=== PATIENT | female | born 1950 | race American Indian/Alaskan Native ===

== ENCOUNTER 2019-01-01 15:48 | Emergency (ER) | payer MEDICARE ==
[2019-01-01 17:54] LABS: Basophils % (Auto) 0.7 % (0.0-1.8); Eosinophils # (Auto) 0.2 K/mm3 (0.0-0.4); Eosinophils % (Auto) 3.4 % (0.0-4.3); Hematocrit 37.3 % (30.3-42.9); Hemoglobin 12.3 gm/dl (10.1-14.3); Lymphocytes # (Auto) 2.1 K/mm3 (1.2-5.4); Lymphocytes % (Auto) 37.3 % (13.4-35.0); Mean Corpuscular HGB Conc 33 % (30-34); Mean Corpuscular Volume 93 fl (79-97); Monocytes # (Auto) 0.5 K/mm3 (0.0-0.8); Monocytes % (Auto) 8.2 % (0.0-7.3); Platelet Count 190 K/mm3 (140-440); Red Blood Count 4.02 M/mm3 (3.65-5.03); Red Cell Distribution Width 15.3 % (13.2-15.2)
[2019-01-01 18:11] LABS: Calcium 10.7 mg/dL (8.4-10.2)
--- NOTE | 2019-01-01 19:12 | Emergency Department Report ---
ED Psych HPI - General Chief Complaint: Psych Stated Complaint: MENTAL HEALTH Time Seen by Provider: 01/01/19 17:00 Source: EMS Mode of arrival: Ambulatory - History of Present Illness Initial Comments: 68-year-old female with questionable previous psychiatric history was found in the middle of the street by bystanders. They attempted to get patient out of the middle of the street and patient was reportedly violent towards them. EMS was called. She reportedly told them that she is "off of her meds", so patient transported to the ED. Here in ED, I am unable to get any information from patient. Her thoughts are disorganized and tangential. Associated Psychiatric Symptoms: other (disorganized thoughts, poor judgement) Treatments Prior to Arrival: none - Related Data Home Medications Medication Instructions Recorded Confirmed Last Taken Unobtainable 01/01/19 01/01/19 Unknown Allergies Allergy/AdvReac Type Severity Reaction Status Date / Time Unable to Assess Allergy Verified 01/01/19 20:43 ED Review of Systems ROS: Stated complaint: MENTAL HEALTH Other details as noted in HPI Comment: Unobtainable due to pts medical conditions (pt uncooperative w/ exam, does not answer my questions, tangential speech) ED Past Medical Hx - Past Medical History Previous Medical History?: No Additional medical history: Unable to assess, pt denies med hx, but is a poor historian - Surgical History Past Surgical History?: No Additional Surgical History: unable to assess - Medications Home Medications: Home Medications Medication Instructions Recorded Confirmed Last Taken Type Unobtainable 01/01/19 01/01/19 Unknown History ED Physical Exam - General Limitations: No Limitations General appearance: alert, in no apparent distress - Head Head exam: Present: atraumatic, normocephalic - Eye Eye exam: Present: normal appearance - ENT ENT exam: Present: mucous membranes moist - Neck Neck exam: Present: normal inspection - Respiratory Respiratory exam: Present: normal lung sounds bilaterally. Absent: respiratory distress - Cardiovascular Cardiovascular Exam: Present: regular rate, normal rhythm - GI/Abdominal GI/Abdominal exam: Absent: distended - Extremities Exam Extremities exam: Present: normal inspection - Neurological Exam Neurological exam: Present: alert - Psychiatric Psychiatric exam: Present: other (disorganized thoughts, poor judgement, tangential speech) - Skin Skin exam: Present: warm, dry, intact, normal color ED Medical Decision Making - Lab Data Result diagrams: 01/01/19 17:09 01/01/19 17:09 Critical care attestation.: If time is entered above; I have spent that time in minutes in the direct care of this critically ill patient, excluding procedure time. ED Disposition Clinical Impression: Psychosis, Medical clearance for psychiatric admission Disposition: [id number] PSY HOSP/PSY UNIT Is pt being admited?: No Condition: Stable Referrals: TAMEKA PERRY [Primary Care Provider] - 3-5 Days
[2019-01-02 02:50] LABS: Bacteria,Urine 1+ /HPF (Negative); Bilirubin,Urine NEG (Negative); Blood,Urine SM (Negative); Color,Urine Yellow (Yellow); Mucus,Urine FEW /HPF; Protein,Urine <15 mg/dL mg/dL (Negative)
[2019-01-02 02:59] LABS: Amphetamine Screen,Urine PRESUMPTIVE NEGATIVE; Benzodiazepines Screen,Urine PRESUMPTIVE NEGATIVE; Cannabinoid Screen,Urine PRESUMPTIVE NEGATIVE; Cocaine Screen,Urine PRESUMPTIVE NEGATIVE; Methadone Screen,Urine PRESUMPTIVE NEGATIVE; Opiate Screen,Urine PRESUMPTIVE NEGATIVE
--- NOTE | 2019-01-02 12:17 | Consultation ---
History of Present Illness - Reason for Consult Consult date: 01/02/19 Reason for consult: Mental Health Evalutation Requesting physician: SANTO GORE - Chief Complaint Chief complaint: 'Yes Yes" - History of Present Psychiatric Illness 68-year-old AA female who presented to the ER for bizarre behavior. Per the record the patient was standing in the street. This patient is known to me. Today the patient is tangent and disorganized during the assessment. Her answers to all questions are not logical. She had to be redirected several times to try to keep her on topic. The patient is a poor historian at this time. Medications and Allergies Allergies Allergy/AdvReac Type Severity Reaction Status Date / Time Unable to Assess Allergy Verified 01/01/19 20:43 Home Medications Medication Instructions Recorded Confirmed Last Taken Type Unobtainable 01/01/19 01/01/19 Unknown History Past psychiatric history - Past Medical History Past Medical History: other (Unable to obatin ) Past Surgical History: Other (Unable to obatin) - past Psychiatric treatment and history psychiatric treatment history: Several inpatient psy services. unable to obtain a [facility] psy hx. - Social History Social history: other (Unable to obtain) Mental Status Exam - Vital signs Last Vital Signs Temp 98.2 F 01/02/19 02:23 Pulse 76 01/02/19 02:23 Resp 18 01/02/19 02:23 BP 132/73 01/02/19 02:23 Pulse Ox 98 01/02/19 02:23 - Exam Narrative exam: MSE: Appearance: in hospital attire Behavior: regular eye contact Speech: pressured speech Mood: unable to assess Affect: flat Thought Process: tangential, disorganized Thought Content: no gestures of SI/HI's Motor Activity: sitting up in bed Cognition: alert Insight: poor Judgment: poor Results Result Diagrams: 01/01/19 17:09 01/01/19 17:09 Abnormal lab results 01/01/19 01/01/19 01/01/19 Range/Units 17:09 17:09 17:09 RDW 15.3 H (13.2-15.2) % Lymph % (Auto) 37.3 H (13.4-35.0) % Dewitt % (Auto) 8.2 H (0.0-7.3) % BUN 18 H (7-17) mg/dL Calcium 10.7 H (8.4-10.2) mg/dL Salicylates < 0.3 L (2.8-20.0) mg/dL Acetaminophen (10.0-30.0) ug/mL 01/01/19 Range/Units 17:09 RDW (13.2-15.2) % Lymph % (Auto) (13.4-35.0) % Dewitt % (Auto) (0.0-7.3) % BUN (7-17) mg/dL Calcium (8.4-10.2) mg/dL Salicylates (2.8-20.0) mg/dL Acetaminophen < 5.0 L (10.0-30.0) ug/mL All other labs normal. Assessment and Plan Assessment and plan: Impression: Unspecified Psychosis. Today the patient is tangent and disorganized during the assessment. UDS is negative. DDx: Schizophrenia, R/O Bipolar DO with psychosis Recommendation/Plan: Continue 1013 and start Haldol 5 mg PO HS for psychosis. Dispo: The patient was referred to inpatient psy services. [facility] staff with Dr Liliana Arita.
[2019-01-03] MEDS: HALDOL PO SCH ×2 (04:43→22:04)
--- NOTE | 2019-01-03 14:34 | Progress Note ---
Subjective - Reason for Consult Consult date: 01/03/19 Reason for consult: Psychiatry Follow-up - Chief Complaint Chief complaint: "It will get better" 68-year-old AA female who presented to the ER for bizarre behavior. Per the record the patient was standing in the street. This patient is known to me. Today the patient is still somewhat disorganized during the assessment. She was able to answer some questions asked of her. Per the staff, no behavioral disturbances by the patient. The patient denies SI/HI's and AVH's. No indications of side effects of her medication. Mental Status Exam - Vital signs Last Vital Signs Temp 98.6 F 01/03/19 13:57 Pulse 75 01/03/19 13:57 Resp 18 01/03/19 13:57 BP 139/79 01/03/19 13:57 Pulse Ox 98 01/03/19 13:57 - Exam Narrative exam: MSE: Appearance: in hospital attire Behavior: regular eye contact Speech: pressured speech Mood: "okay" Affect: congruent to mood Thought Process: somewhat disorganized Thought Content: denies SI/HI's and AVH's Motor Activity: ambulatory Cognition: A/O x3 Insight: variable Judgment: variable Assessment and Plan Impression: Unspecified Psychosis. Today the patient is still somewhat disorganized during the assessment. UDS is negative. DDx: Schizophrenia, R/O Bipolar DO with psychosis Recommendation/Plan: Continue 1013 and Haldol 5 mg PO HS for psychosis. Dispo: The patient was referred to inpatient psy services. Staffed with Dr Riley Arita.
[2019-01-03 21:21] VITALS: BP 115/76
== END 2019-01-04 01:35 ==
LOC: EDBD → ED 15:48 → EEVIPCON 15:48 → ED 01-04 01:35
DX: F29 Unspecified psychosis not due to a substance or known physiological condition (principal)
CPT/HCPCS: 36415; 80048; 80307; 81001; 85025; 99285; G0480; 80320